=== PATIENT | female | born 1950 | race Caucasian/White ===

== ENCOUNTER 2017-01-29 09:53 | Outpatient (CLI) | payer MEDICARE ==
--- NOTE | 2017-01-30 15:23 | Mammography Report ---
DIGITAL SCREENING MAMMOGRAM: 01/29/2017 CLINICAL INDICATION: A 66-year-old, for screening. COMPARISON: 04/2011, 11/2009, 11/2008, 11/2007. TECHNIQUE: Routine CC and MLO projections were obtained of the breasts. FINDINGS: The breasts demonstrate scattered fibroglandular densities bilaterally. Punctate, typicall y benign calcifications are present. Intramammary lymph nodes are stable. No suspicious masses, clust ered microcalcifications, or regions of architectural distortion are identified. IMPRESSION: BENIGN FINDINGS. RECOMMENDATION: ROUTINE ANNUAL SCREENING UNLESS OTHERWISE CLINICALLY INDICATED. BIRADS CATEGORY 2-BENIGN FINDINGS. STANDARD QUALIFYING STATEMENTS 1. This examination was reviewed with the aid of Computer-Aided Detection (CAD). 2. A negative or benign imaging report should not delay biopsy if clinically suspicious findings are present. Consider surgical consultation if warranted. More than 5% of cancers are not identified by i maging. 3. Dense breasts may obscure an underlying neoplasm. JOB #: [id number] EXT JOB #:[id number]
== END 2017-01-29 09:54 | disposition home or self-care (01) ==
LOC: DI.N 09:53
PROVIDERS: ATTEND Family Medicine
DX: Z12.31 Encounter for screening mammogram for malignant neoplasm of breast (principal)
CPT/HCPCS: 77067

== ENCOUNTER 2021-07-20 19:09 | Outpatient (CLI) | payer MEDICARE | END 2021-07-20 19:10 | disposition short-term general hospital (02) | LOC: EMS 19:09 | DX: R53.1 Weakness (principal); R11.2 Nausea with vomiting, unspecified; R50.9 Fever, unspecified; R52 Pain, unspecified; Z98.890 Other specified postprocedural states; Z90.11 Acquired absence of right breast and nipple | CPT/HCPCS: A0425; A0427 ==